=== PATIENT | female | born 1985 | race Caucasian/White ===

== ENCOUNTER 2017-01-18 19:44 | Emergency (ER) | payer OTHER ==
[2017-01-18 19:52] VITALS: BP 119/83
[2017-01-18 20:12] LABS: Urine Bilirubin Negative (NEGATIVE); Urine Blood Negative /ul (NEGATIVE); Urine Ketone Negative (NEGATIVE); Urine Nitrite Negative (NEGATIVE); Urine Protein Negative (NEGATIVE); Urine Specific Gravity >=1.030 SP.GR. (1.005-1.010); Urine Urobilinogen Normal (NORMAL)
[2017-01-18 20:13] LABS: Hematocrit 39.5 % (37.0-47.0); Mean Cell Volume 81.8 fl (78-100); Mean Corpuscular Hemoglobin 26.9 pg (27-31); Mean Corpuscular Hgb Conc 32.9 g/dl (32-36); Mean Platelet Volume 10.2 fl (6.0-9.5); Neutrophil # 5.8 K/mm3 (1.3-6.0); Neutrophil % 54.3 % (42-75.0); Platelet Count 418 K/mm3 (150-450); Red Blood Count 4.83 M/mm3 (4.2-5.4); Red Cell Distribution Width 13.6 % (11.5-14.0); White Blood Count 10.6 K/mm3 (4.0-10.5)
--- NOTE | 2017-01-18 20:15 | ERNOTE ---
ER Female HPI Date of Service: 01/18/17 Stated Complaint: URINARY PROBLEM Presenting Symptoms: pelvic pain, dysuria Time Seen by Provider: 01/18/17 19:47 Source: patient Exam Limitations: no limitations Immunizations: IMMUNIZATION HX Immunizations Up to Date Yes History of Influenza Vaccine Yes Hx Pneumococcal Vaccination No Allergies/Adverse Reactions: Allergies codeine [Codeine] Allergy (Severe, Verified 01/18/17 19:52) anaphylactic strawberry Allergy (Mild, Verified 01/18/17 19:52) Hives, itchy mouth Home Medications: HOME MEDICATIONS Loratadine [Claritin] 10 mg PO DAILY 09/29/16 [Last Taken 10/15/16 08:00] Vit#96/Ferrous Fum/FA [ S] 1 tab PO DAILY 09/29/16 [Last Taken 10/15/16 08:00] Probiotic Colon Health 1 tab PO DAILY 10/08/16 [Last Taken 10/15/16 08:00] Albuterol Sulfate [Albuterol Sulfate 2.5 MG/0.5ML] PRN 10/16/16 [Last Taken 11/23] Sertraline HCl [Zoloft] 50 mg PO DAILY 01/18/17 [Last Taken Unknown] Sulfamethoxazole/Trimethoprim [Bactrim Ds] 1 tab PO BID #28 tab 01/18/17 [Last Taken Unknown] - History of Present Illness Narrative: Pt. comes in with c/o dysuria, burning with urination, L flank pain, urgency and retention of urine since this morning. Pt. denies any SOB, CP, NVD, numbness tingling, alleviating factors, or aggravating factors. Pt. is undergoing treatment for pelvic floor dysfunction due to forcep delivery of her son six months ago and initially thought she was having symptoms due to this until they suddenly worsened today. Review of Systems - Review of Systems Constitutional: Present: no symptoms reported. Absent: weakness, fatigue, malaise EYE: Present: no symptoms reported ENT: Present: no symptoms reported Respiratory: Present: no symptoms reported. Absent: shortness of breath, cough , wheezing Cardiology: Present: no symptoms reported. Absent: chest pain, palpitations, edema Gastrointestinal/Abdominal: Present: abdominal pain - suprapubic. Absent: nausea, vomiting, diarrhea Genitourinary: Present: frequency, pain - suprapubis L flank, dysuria, decreased urinary output. Absent: discharge Musculoskeletal: Present: back pain - L flank. Absent: joint pain Skin: Present: no symptoms reported Neurological: Present: no symptoms reported. Absent: headache, dizziness/light- headedness, numbness, tingling All Other Systems: All systems neg except as marked - Patient's Past Medical History Patient History - Medical: Bipolar, Depression, Fibromyalgia, GERD Patient History - Cardiac/Respiratory: Asthma Patient History - Cancer: No Hx of Cancer Patient History - Surgical Procedures: T & A, Other Patient History - Other: None LMP (females 10-50): other LMP (Calendar): 10/05/15 - Family History Mother Family History - Medical: No pertinent hx Family History - Cardiac/Respiratory: No pertinent hx Father Family History - Medical: Bipolar, Depression Family History - Cardiac/Respiratory: Pulmonary Embolism - Social History Living Situations: home Abuse History: No History of abuse Psych History: No pertinent hx Does anyone smoke in the home?: No Smoking Status: Never smoker Alcohol Use: none Drug Use: none - Immunizations Immunizations Up to Date: Yes Hx Pneumococcal Vaccination: No History of Influenza Vaccine: Yes Physical Exam - Physical Exam General Appearance: Present: wd/wn, alert, no apparent distress Eye Exam: Normal inspection: bilateral, PERRL: bilateral Ears, Nose, Throat: Present: normal ENT inspection, normal pharynx Neck: Present: normal inspection, nontender. Absent: lymphadenopathy (R), lymphadenopathy (L) Respiratory: Present: no respiratory distress, normal breath sounds, no accessory muscle use, chest nontender, lungs clear Cardiovascular/Chest: Present: regular rate, rhythm, no murmur, normal peripheral pulses Gastrointestinal/Abdominal: Present: normal bowel sounds, nondistended, soft, no organomegaly, tenderness - suprapubic Back Exam: Present: normal range of motion, no vertebral tenderness, CVA tenderness (L) Extremity Exam: Present: normal inspection, non-tender, normal range of motion, no edema Neurological Exam: Present: alert, oriented, normal mood/affect, no motor/ sensory deficits Skin Exam: Present: normal color, warm/dry. Absent: pallor, skin rash ED Progress - Results and Orders Patient's Lab Results:: I have reviewed the patient's lab results. - Vital Signs Patient's Vital Signs:: I have reviewed the patient's vital signs. Vital Signs: Vital Signs 01/18/17 19:48 Temperature 36.8 C Pulse Rate 81 Respiratory 16 Rate Blood Pressure 119/83 O2 Sat by Pulse 98 Oximetry - Progress/Reassessment Chief Complaint: Genitourinary Problem Progress:: Unchanged Departure Clinical Impression: UTI (urinary tract infection) Qualifiers: Urinary tract infection type: site unspecified Hematuria presence: without hematuria Qualified Code(s): N39.0 - Urinary tract infection, site not specified - Departure Disposition: Home self-care Condition: Good Instructions: Urinary Tract Infection, Adult, [id number] Additional Instructions: Please follow up with primary provider in 2-3 days Referrals: Adelina Pérez DO [Primary Care Provider] - Prescriptions: Sulfamethoxazole/Trimethoprim [Bactrim Ds] 1 tab PO BID #28 tab
--- OUTSIDE RECORDS SUMMARY | 2017-01-18 20:18 | XMS REPORT | Continuity of Care Document ---
:1985 Author Organization [facility] ([facility]) Address [address] [place] [address] Phone [phone] Care Team Providers Name Role Phone Adelina Pérez Primary Care Provider [phone] Source Comments This disclosure is being made pursuant to the Care Everywhere program, applicable federal and state laws, and may not contain all informaitonavailable regarding this patient.[facility] ([facility]) Active Allergies and Adverse Reactions Allergen Noted Date Severity Reactions Comments Codeine OTHER racing pulse [place] 12/03/2016 Angioedema Current Medications Prescription Sig. Disp. Refills Start Date End Date Status busPIRone 5 mg tablet Take 5 mg by mouth Active 2 times daily. probiotic PO Take by mouth 2 Active times daily. PNV62/FA/OM3/DHA/EPA/FISH Take by mouth 2 Active OIL ( GUMMY PO) times daily. 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-live --MAL Leukocytosis, unspecified 04/21/2007 Screening examination for venereal disease 04/20/2007 Disturbance of skin sensation 04/20/2007 Pain in limb 02/24/2007 Acute pharyngitis 02/14/2007 Most Recent Encounters Date Type Specialty Providers Description 01/18/2017 Telephone Obg Urogynecology Gee Ambriz MD Chief Comp: Ask-a- nurse 12/09/2016 Telephone Obg Urogynecology Gee Ambriz MD Chief Comp: Medical Excuse Request 12/08/2016 Office Visit Obg Urogynecology Darlene Coleman Chief Comp: Patient MD Dangelo Reported Reason For Visit 12/03/2016 Office Visit Obg Urogynecology Darlene Coleman Dx: Melania Pierson MD incontinence (Primary Gee Ambriz MD Dx) 11/05/2016 Telephone Obg Urogynecology Darlene Coleman Chief Comp: Ask-a -nurse MD Dangelo Immunizations Name Dates Previously Given Next Due HPV, quadrivalent (Gardasil) 02/06/2008,06/20/2007,04/20/2007 Social History Tobacco Use Types Packs/Day Years Used Date Never Smoker Smokeless Tobacco: Never Used Tobacco Cessation:Counseling Given: Yes Comments: Alcohol Use Drinks/Week oz/Week Comments No Last Filed Vital Signs Vital Sign Reading Time Taken Blood Pressure 110/67 12/03/2016 10:48 AM ACCESSIONER Pulse 92 12/03/2016 10:48 AM ACCESSIONER Temperature 37.3 C (99.14 F) 02/02/2008 4:01 PM CDT Respiratory Rate 24 04/15/2007 12:52 AM CDT Height 1.626 m (5' 4") 12/03/2016 10:48 AM ACCESSIONER Weight 81.9 kg (180 lb 8.9 oz) 12/03/2016 10:48 AM ACCESSIONER Body Mass Index 30.98 12/03/2016 10:48 AM ACCESSIONER Oxygen Saturation - - Plan of Care Date Type Specialty Providers Description 03/04/2017 Appointment Obg Urogynecology Gee Ambriz MD Chief Comp: Patient [address] [place] [address] Visit [phone] (Fax) Health Maintenance Due Date Last Done Comments Hepatitis B Vaccine (1 of 3 - Primary Series) 1985 Tdap Vaccine 1995 Lipid Disorder Screening 2002 MMR Vaccine 2002 Td Vaccine 2002 Varicella Vaccine (1 of 2 - Adult - No Evidence of 2002 Immunity) Cervical Cancer Screening 2014 Influenza Vaccine: Seasonal (#1) 06/08/2016 Results from Last 3 Months POST-VOID RESIDUAL (BVI), POINT OF CARE (12/03/2016) Component Value Range VOLUME 120 ml POST-VOID RESIDUAL 12 ml URINE DIPSTICK, 10, POINT OF CARE (12/03/2016) Component Value Range POC GLUCOSE Negative mg/dl POC BILIRUBIN Negative Negative-Negative POC KETONES Negative Negative-Negative mg/dl POC SPEC GRAVITY 1.015 1.015-1.025 POC BLOOD Negative Negative-Negative POC PH 7.0 5.0-8.5 POC PROTEIN Negative Negative-Negative mg/dl POC UROBILINOGEN 0.2 0.2-1.0 mg/dl POC NITRITE Negative Negative-Negative POC LEUKOCYTE Negative Negative-Negative
[2017-01-18 20:21] LABS: Urine Appearance Slightly Cloudy; Urine Bacteria 1+; Urine Color Yellow; Urine Other Crystal Few - 1+ /hpf; Urine RBC None Seen /hpf (0-5)
[2017-01-18 20:22] LABS: Urine Mucus Moderate - 2+
[2017-01-18 20:24] LABS: Anion Gap 16.5 mmol/L (6.8-13.8); BUN/Creatinine Ratio 24.1 (9.0-21.6); Bilirubin, Total 0.3 mg/dL (0.0-1.1); Ca. Corrected For Albumin 8.6 mg/dL (8.4-10.2); Calcium * 8.9 mg/dL (7.9-10.9); Carbon Dioxide 23.3 mmol/L (24-32.6); Potassium 3.8 mmol/L (3.4-4.6); Total Protein 8.2 gm/dL (6.2-8.2)
[2017-01-18] MEDS ORDERED: SULFAMETHOXAZOLE/TRIMETHOPRIM 1 TAB TABLET PO ONE (20:25)
[2017-01-18] MEDS ORDERED: SULFAMETHOXAZOLE/TRIMETHOPRIM 1 TAB TABLET ONE (20:30)
== END 2017-01-18 20:57 | disposition home or self-care (01) ==
LOC: ER 19:44
DX: N39.0 Urinary tract infection, site not specified (principal); F32.9 Major depressive disorder, single episode, unspecified

== ENCOUNTER 2017-02-17 19:46 | Emergency (ER) | payer OTHER ==
[2017-02-17 20:07] LABS: Urine Bilirubin Negative (NEGATIVE); Urine Blood Negative /ul (NEGATIVE); Urine Ketone Negative (NEGATIVE); Urine Nitrite Negative (NEGATIVE); Urine Protein Negative (NEGATIVE); Urine Specific Gravity >=1.030 SP.GR. (1.005-1.010); Urine Urobilinogen Normal (NORMAL)
[2017-02-17 20:31] LABS: Urine Appearance Slightly Cloudy; Urine Bacteria 1+; Urine Color Yellow; Urine RBC TRACE /hpf (0-5); Urine WBC None Seen /hpf (0-5)
--- OUTSIDE RECORDS SUMMARY | 2017-02-17 20:37 | XMS REPORT | Continuity of Care Document ---
:1985 Author Organization [facility] ([facility]) Address [address] [place] [address] Phone [phone] Care Team Providers Name Role Phone Adelina Pérez Primary Care Provider [phone] Source Comments This disclosure is being made pursuant to the Care Everywhere program, applicable federal and state laws, and may not contain all informaitonavailable regarding this patient.[facility] ([facility]) Active Allergies and Adverse Reactions Allergen Noted Date Severity Reactions Comments Codeine OTHER racing pulse [place] 12/03/2016 Angioedema Current Medications Prescription Sig. Disp. 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 Leukocytosis, unspecified 04/21/2007 [...] Coleman Dx: Melania Pierson MD incontinence (Primary GenadGee gannon MD Dx) Immunizations Name Dates Previously Given Next Due HPV, quadrivalent (Gardasil) 02/06/2008,06/20/2007,04/20/2007 Social History Tobacco Use Types Packs/Day Years Used Date Never Smoker Smokeless Tobacco: Never Used Tobacco Cessation:Counseling Given: Yes Comments: Alcohol Use Drinks/Week oz/Week Comments No Last Filed Vital Signs Vital Sign Reading Time Taken Blood Pressure 110/67 12/03/2016 10: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 Pulse 92 12/03/2016 10: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 Temperature 37.3 C (99.14 F) 02/02/2008 4:01 PM CDT Respiratory Rate 24 04/15/2007 12:52 AM CDT Height 1.626 m (5' 4") 12/03/2016 10: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 Weight 81.9 kg (180 lb 8.9 oz) 12/03/2016 10: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 Body Mass Index 30.98 12/03/2016 10: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 Oxygen Saturation - - Plan of Care Date Type Specialty Providers Description 03/04/2017 Appointment Obg Urogynecology Gee Ambriz MD Chief Comp: Patient [address] [place] [address] Visit [phone] (Fax) Health Maintenance Due Date Last Done Comments Hepatitis B Vaccine (1 of 3 - Primary Series) 1985 Tdap Vaccine 1995 Lipid Disorder Screening 2002 MMR Vaccine 2002 Td Vaccine 2002 Varicella Vaccine (1 of 2 - Adult - No Evidence of 2002 Immunity) Cervical Cancer Screening 2014 Influenza Vaccine: Seasonal Completed Results from Last 3 Months POST-VOID RESIDUAL [...]
[2017-02-17] MEDS ORDERED: ONDANSETRON HCL/PF 2 MG/ML VIAL IV ONE (20:45)
[2017-02-17] MEDS ORDERED: NORMAL SALINE 1,000 ML IV ONE (20:45)
[2017-02-17 20:46] LABS: Hematocrit 38.1 % (37.0-47.0); Hemoglobin 12.3 gm/dL (12.5-16.0); Mean Cell Volume 82.3 fl (78-100); Mean Corpuscular Hemoglobin 26.6 pg (27-31); Mean Corpuscular Hgb Conc 32.3 g/dl (32-36); Mean Platelet Volume 9.8 fl (6.0-9.5); Neutrophil # 5.8 K/mm3 (1.3-6.0); Neutrophil % 56.2 % (42-75.0); Platelet Count 367 K/mm3 (150-450); Red Blood Count 4.63 M/mm3 (4.2-5.4); Red Cell Distribution Width 14.3 % (11.5-14.0); White Blood Count 10.3 K/mm3 (4.0-10.5)
--- NOTE | 2017-02-17 20:52 | ERNOTE ---
ER Female HPI Date of Service: 02/17/17 Stated Complaint: KIDNEY PAIN Presenting Symptoms: dysuria Time Seen by Provider: 02/17/17 20:28 Source: patient Exam Limitations: no limitations Immunizations: IMMUNIZATION HX Immunizations Up to Date Yes History of Influenza Vaccine Yes Hx Pneumococcal Vaccination No Allergies/Adverse Reactions: Allergies codeine [Codeine] Allergy (Severe, Verified 02/17/17 19:58) anaphylactic strawberry Allergy (Mild, Verified 02/17/17 19:58) Hives, itchy mouth Home Medications: HOME MEDICATIONS Loratadine [Claritin] 10 mg PO DAILY 09/29/16 [Last Taken 10/15/16 08:00] Vit#96/Ferrous Fum/FA [ S] 1 tab PO DAILY 09/29/16 [Last Taken 10/15/16 08:00] Probiotic Colon Health 1 tab PO DAILY 10/08/16 [Last Taken 10/15/16 08:00] Albuterol Sulfate [Albuterol Sulfate 2.5 MG/0.5ML] PRN 10/16/16 [Last Taken 11/23] Sertraline HCl [Zoloft] 50 mg PO DAILY 01/18/17 [Last Taken Unknown] Sulfamethoxazole/Trimethoprim [Bactrim Ds] 1 tab PO BID #28 tab 01/18/17 [Last Taken Unknown] - History of Present Illness Narrative: Pt. comes in with c/o BLQ pain and B flank pain for 5 hours. Pt. had a UTI a month ago and was treated with full resolution of symptoms, but states that this is similar to those symptoms. Pt. denies any fever but states that she is chilled and nauseated but denies any SOB, CP, diarrhea, or constipation. Pt. states that her last BM was this morning. Review of Systems - Review of Systems Constitutional: Present: recent illness, chills, malaise EYE: Present: no symptoms reported ENT: Present: no symptoms reported Respiratory: Present: no symptoms reported. Absent: shortness of breath, cough , wheezing Cardiology: Present: no symptoms reported. Absent: chest pain, palpitations, edema Gastrointestinal/Abdominal: Present: nausea, abdominal pain - BLQ. Absent: vomiting, diarrhea Genitourinary: Present: no symptoms reported Musculoskeletal: Present: back pain - B flank. Absent: joint pain Skin: Present: no symptoms reported. Absent: rash, change in color, change in hair/nails Neurological: Present: dizziness/light-headedness. Absent: headache, numbness, tingling All Other Systems: All systems neg except as marked - Patient's Past Medical History Patient History - Medical: Bipolar, Depression, Fibromyalgia, GERD, UTI'S Patient History - Cardiac/Respiratory: Asthma Patient History - Cancer: No Hx of Cancer Patient History - Surgical Procedures: T & A, Other Patient History - Other: None LMP (Calendar): 10/05/15 - Family History Mother Family History - Medical: No pertinent hx Family History - Cardiac/Respiratory: No pertinent hx Father Family History - Medical: Bipolar, Depression Family History - Cardiac/Respiratory: Pulmonary Embolism - Social History Living Situations: home Abuse History: No History of abuse Psych History: No pertinent hx Does anyone smoke in the home?: No Smoking Status: Never smoker Alcohol Use: none Drug Use: none - Immunizations Immunizations Up to Date: Yes Hx Pneumococcal Vaccination: No History of Influenza Vaccine: Yes Physical Exam - Physical Exam General Appearance: Present: wd/wn, alert, no apparent distress Eye Exam: Normal inspection: bilateral, PERRL: bilateral, EOMI: bilateral Ears, Nose, Throat: Present: normal ENT inspection, normal pharynx Neck: Present: normal inspection, nontender. Absent: lymphadenopathy (R), lymphadenopathy (L) Respiratory: Present: no respiratory distress, normal breath sounds, no accessory muscle use, chest nontender, lungs clear Cardiovascular/Chest: Present: regular rate, rhythm, no murmur, normal peripheral pulses Gastrointestinal/Abdominal: Present: normal bowel sounds, nondistended, soft, no organomegaly, tenderness - BLQ Back Exam: Present: normal inspection, normal range of motion, no CVA tenderness , no vertebral tenderness. Absent: CVA tenderness (R), CVA tenderness (L) Extremity Exam: Present: normal inspection Neurological Exam: Present: alert, oriented, normal mood/affect, no motor/ sensory deficits Skin Exam: Present: normal color, warm/dry. Absent: pallor, skin rash ED Progress - Results and Orders Patient's Lab Results:: I have reviewed the patient's lab results. - Vital Signs Patient's Vital Signs:: I have reviewed the patient's vital signs. Vital Signs: Vital Signs 04/12/17 19:55 Temperature 36.5 C Pulse Rate 72 Respiratory 18 Rate Blood Pressure 127/90 O2 Sat by Pulse 99 Oximetry - X-Ray X-Ray #1 X-Ray: abdomen Interpretation: Interp. by me X-ray Comments: moderate retained stool - Progress/Reassessment Chief Complaint: Genitourinary Problem Departure Clinical Impression: Constipation Qualifiers: Constipation type: unspecified constipation type Qualified Code(s): K59.00 - Constipation, unspecified - Departure Disposition: Home self-care Condition: Good Instructions: Constipation, Adult, [id number] Additional Instructions: Please drink 1 bottle of magnesium citrate when you get home then if no relief by tomorrow am get another bottle and drink it in the morning. Referrals: Adelina Pérez, DO [Primary Care Provider] -
[2017-02-17 20:55] LABS: Albumin * 3.9 gm/dl (3.4-5.0); BUN/Creatinine Ratio 17.8 (9.0-21.6); Bilirubin, Total 0.1 mg/dL (0.0-1.1); Ca. Corrected For Albumin 8.6 mg/dL (8.4-10.2); Calcium * 8.8 mg/dL (7.9-10.9); Carbon Dioxide 24.9 mmol/L (24-32.6); Potassium 3.9 mmol/L (3.4-4.6); Total Protein 7.9 gm/dL (6.2-8.2)
[2017-02-17] MEDS ORDERED: ONDANSETRON HCL/PF 2 MG/ML VIAL ONE (21:05)
[2017-02-17 21:14] VITALS: BP 118/91
[2017-02-17] MEDS ORDERED: MAGNESIUM CITRATE 300 ML BTL PO ONE (22:12)
[2017-02-17] MEDS ORDERED: MAGNESIUM CITRATE 300 ML BTL ONE (22:17)
== END 2017-02-17 22:19 | disposition home or self-care (01) ==
LOC: ER 19:46
DX: K59.00 Constipation, unspecified (principal)

== ENCOUNTER 2017-06-04 22:15 | Emergency (ER) | payer OTHER ==
--- NOTE | 2017-06-04 23:02 | ERNOTE ---
Integumentary HPI - Narrative Date of Service: 06/04/17 - General Time Seen by Provider: 06/04/17 23:00 Source: patient - Immun/Allergies/Home Medications Immunizations: IMMUNIZATION HX Immunizations Up to Date Yes History of Influenza Vaccine Yes Hx Pneumococcal Vaccination No Allergies/Adverse Reactions: Allergies Allergy/AdvReac Type Severity Reaction Status Date / Time codeine [Codeine] Allergy Severe anaphylacti Verified 02/17/17 19:58 c strawberry Allergy Mild Hives, Verified 02/17/17 19:58 itchy mouth Home Medications: HOME MEDICATIONS Loratadine [Claritin] 10 mg PO DAILY 09/29/16 [Last Taken 10/15/16 08:00] Vit#96/Ferrous Fum/FA [ S] 1 tab PO DAILY 09/29/16 [Last Taken 10/15/16 08:00] Probiotic Colon Health 1 tab PO DAILY 10/08/16 [Last Taken 10/15/16 08:00] Albuterol Sulfate [Albuterol Sulfate 2.5 MG/0.5ML] PRN 10/16/16 [Last Taken 11/23] Amoxicillin 500 mg PO TID 06/04/17 [Last Taken Unknown] Diphenhydramine HCl [Benadryl Allergy] 50 mg PO QID #30 tablet 06/04/17 [Last Taken Unknown] metroNIDAZOLE [Metronidazole 0.75% Cream] 1 appl TP HS 06/04/17 [Last Taken Unknown] - History of Present Illness Narrative: new rash x 2 days behind ears, look like red rash consistent with allergic hive. Date (Duration): 06/04/17 Time (Timing): 08:00 Location: Reports: facial, other - behind ears Severity: moderate Exposure: Reports: medications-specify - amoxicillin Modifying Factors - (Improves): Reports: antihistamine Modifying Factors - (Worsens): Reports: nothing Associated Symptoms: Reports: denies symptoms Prior Treatment: Reports: recently seen, currently on antibiotics Review of Systems - Review of Systems Constitutional: Present: no symptoms reported EYE: Present: no symptoms reported ENT: Present: no symptoms reported Respiratory: Present: no symptoms reported Cardiology: Present: no symptoms reported Gastrointestinal/Abdominal: Present: no symptoms reported Genitourinary: Present: no symptoms reported Musculoskeletal: Present: no symptoms reported Skin: Present: See HPI Neurological: Present: no symptoms reported Endocrine: Present: no symptoms reported Hematologic/Lymphatic: Present: no symptoms reported Psych: Present: no symptoms reported All Other Systems: All systems neg except as marked - Narrative Narrative: PAST MEDICAL HISTORY, SOCIAL HISTORY, MEDICATION HISTORY, ALLERGIES HISTORY, SOCIAL HISTORY, FAMILY HISTORY REVIEWED. - Patient's Past Medical History Patient History - Medical: Bipolar, Depression, Fibromyalgia, GERD, UTI'S, Other Patient History - Cardiac/Respiratory: Asthma Patient History - Cancer: No Hx of Cancer Patient History - Surgical Procedures: T & A, Other Patient History - Other: None LMP (females 10-50): 2014 LMP (Calendar): 10/05/15 - Family History Mother Family History - Medical: No pertinent hx Family History - Cardiac/Respiratory: No pertinent hx Father Family History - Medical: Bipolar, Depression Family History - Cardiac/Respiratory: Pulmonary Embolism - Social History Living Situations: parents Abuse History: No History of abuse Psych History: Hx of Depression, Hx of Bipolar Disorder Does anyone smoke in the home?: No Smoking Status: Never smoker Alcohol Use: none Drug Use: none - Immunizations Immunizations Up to Date: Yes Hx Pneumococcal Vaccination: No History of Influenza Vaccine: Yes Physical Exam - Physical Exam General Appearance: Present: wd/wn, alert, no apparent distress Head Exam: Present: normal inspection, no evidence of injury Eye Exam: Normal inspection: bilateral, PERRL: bilateral, EOMI: bilateral Ears, Nose, Throat: Present: normal pharynx, other - postauricular hives are noted behind both ears. Erythematous large about 3-4 cm in size. Neck: Present: normal inspection, nontender Respiratory: Present: no respiratory distress, normal breath sounds, lungs clear Cardiovascular/Chest: Present: regular rate, rhythm, no murmur Gastrointestinal/Abdominal: Present: normal bowel sounds, nontender, soft Rectal Exam: Present: deferred Extremity Exam: Present: normal inspection, non-tender, normal range of motion Neurological Exam: Present: alert, oriented, normal mood/affect, no motor/ sensory deficits Skin Exam: Present: skin rash, other - hives as described above in HEENT examination. Do not does not raquel. Lymphatic Exam: Present: no adenopathy - no cervical adenopathy noted. Pelvic Exam: Present: deferred ED Progress - Vital Signs Patient's Vital Signs:: I have reviewed the patient's vital signs. Vital Signs: Vital Signs 06/04/17 22:19 Temperature 37.0 C Pulse Rate 80 Respiratory 16 Rate Blood Pressure 123/67 O2 Sat by Pulse 99 Oximetry - Progress/Reassessment Chief Complaint: Rash Progress:: Unchanged Plan - Plan Plan: benadryl 50mg po now for hives. Patient disposition for hive control. Departure Clinical Impression: Giant hives Qualifiers: Encounter type: initial encounter Qualified Code(s): T78.3XXA - Angioneurotic edema, initial encounter - Departure Disposition: Home self-care Condition: Good Instructions: Drug Rash Additional Instructions: stop amoxicillin this could be an allergic reaction Prescriptions: Diphenhydramine HCl [Benadryl Allergy] 50 mg PO QID #30 tablet
[2017-06-04] MEDS ORDERED: diphenhydrAMINE HCL 50 MG CAPSULE PO ONE ×2 (23:35→23:42)
[2017-06-04 23:45] VITALS: BP 126/70
== END 2017-06-04 23:57 | disposition home or self-care (01) ==
LOC: ER 22:15
DX: T78.3XXA Angioneurotic edema, initial encounter (principal)

== ENCOUNTER 2017-10-10 10:47 | Emergency (ER) | payer OTHER ==
--- NOTE | 2017-10-10 11:15 | ERNOTE ---
ENT HPI Date of Service: 10/10/17 Presenting Symptoms: other - Sore throat Time Seen by Provider: 10/10/17 11:13 Source: patient, RN notes reviewed Exam Limitations: no limitations - Immun/Allergies/Home Medications Immunizations: IMMUNIZATION HX Immunizations Up to Date Yes History of Influenza Vaccine Yes Hx Pneumococcal Vaccination No Allergies/Adverse Reactions: Allergies Allergy/AdvReac Type Severity Reaction Status Date / Time codeine [Codeine] Allergy Severe anaphylacti Verified 10/10/17 10:59 c strawberry Allergy Mild Hives, Verified 10/10/17 10:59 itchy mouth Home Medications: HOME MEDICATIONS Vits96/Iron Fum/Folic [ S] 1 tab PO DAILY 09/29/16 [Last Taken 10/15/16 08:00] Probiotic Colon Health 1 tab PO DAILY 10/08/16 [Last Taken 10/15/16 08:00] Albuterol Sulfate [Ventolin Hfa] 2 puff IH Q4H PRN 10/10/17 [Last Taken Unknown] Levonorgestrel-Ethin Estradiol [Jolessa] 1 each PO DAILY 10/10/17 [Last Taken Unknown] - History of Present Illness Narrative: 32 year old female presents to the ED with her 2 children for a sore throat. She was recently treated for strep throat and reports being exposed to hand, foot and mouth disease earlier this week. She had her tonsils removed last year and reports that her pain is currently worse than it was after her surgery. She denies any fever. She has not taken anything for pain. She also reports postnasal drainage. ENT Location: Present: throat Prearrival Treatment: Present: no prearrival treatment Prior Treament: Reports: recently seen, treated by physician, similar symptoms before. Denies: currently on antibiotics Review of Systems - Review of Systems Constitutional: Present: fatigue, malaise. Absent: fever, chills EYE: Absent: eye pain, eye discharge ENT: Present: nasal drainage, sore throat. Absent: nose congestion, throat swelling Respiratory: Absent: shortness of breath, cough Cardiology: Present: no symptoms reported Gastrointestinal/Abdominal: Absent: vomiting, diarrhea, abdominal pain Genitourinary: Present: no symptoms reported Musculoskeletal: Absent: muscle pain, neck pain, joint pain Skin: Absent: rash, lesions Neurological: Absent: headache, dizziness/light-headedness Endocrine: Present: no symptoms reported Hematologic/Lymphatic: Present: no symptoms reported Psych: Present: no symptoms reported - Patient's Past Medical History Patient History - Medical: Bipolar, Depression, Fibromyalgia, GERD, UTI'S, Other Patient History - Cardiac/Respiratory: Asthma Patient History - Cancer: No Hx of Cancer Patient History - Surgical Procedures: T & A, Other Patient History - Other: None - Family History Mother Family History - Medical: No pertinent hx Family History - Cardiac/Respiratory: No pertinent hx Father Family History - Medical: Bipolar, Depression Family History - Cardiac/Respiratory: Pulmonary Embolism - Social History Living Situations: home Abuse History: No History of abuse Psych History: Hx of Depression, Hx of Bipolar Disorder - Immunizations Immunizations Up to Date: Yes Hx Pneumococcal Vaccination: No History of Influenza Vaccine: Yes Physical Exam - Physical Exam General Appearance: Present: wd/wn, alert, no apparent distress Head Exam: Present: normal inspection Eye Exam: Normal inspection: bilateral Ears, Nose, Throat: Present: pharyngeal erythema. Absent: abnormal TM (R), abnormal TM (L), nasal congestion, sinus pain/drainage, pharyngeal swelling, dry mucous membranes Neck: Present: normal inspection, nontender, supple, full range of motion. Absent: lymphadenopathy (R), lymphadenopathy (L) Respiratory: Present: no respiratory distress, normal breath sounds, no accessory muscle use, lungs clear Cardiovascular/Chest: Present: regular rate, rhythm, no murmur Extremity Exam: Present: normal inspection, normal range of motion, no edema Neurological Exam: Present: alert, oriented, normal mood/affect, no motor/ sensory deficits Skin Exam: Present: normal color, warm/dry ED Progress - Results and Orders Patient's Lab Results:: I have reviewed the patient's lab results. - Vital Signs Patient's Vital Signs:: I have reviewed the patient's vital signs. Vital Signs: Vital Signs 10/10/17 10:51 Temperature 36.7 C Pulse Rate 89 Respiratory 12 Rate Blood Pressure 150/99 O2 Sat by Pulse 99 Oximetry - Progress/Reassessment Chief Complaint: Sore Throat Progress:: Unchanged Departure Clinical Impression: Sore throat (viral) - Departure Disposition: Home self-care Condition: Good Instructions: Sore Throat, [id number] Referrals: Shelly Lemon PAC [Primary Care Provider] -
[2017-10-10 17:11] VITALS: BP 147/94
== END 2017-10-10 12:20 | disposition home or self-care (01) ==
LOC: ER 10:47
DX: J02.8 Acute pharyngitis due to other specified organisms (principal); Z87.440 Personal history of urinary (tract) infections; J45.909 Unspecified asthma, uncomplicated